=== PATIENT | male | born 1990 | race Caucasian/White ===

== ENCOUNTER 2019-02-09 02:02 | Emergency (ER) | payer MEDICAID ==
[~2019-02-09] VITALS: Ht 177.8 cm; Wt 74.8 kg
[~2019-02-09 02:02] MED LIST: ANAPROX DS550 MG PO; ANUSOL1 EACH PO; ATARAX,VISTARIL50 MG PO; CARBIDOPA/LEVOD1 TA1 PO; EPI EZ PEN1 MG/ML IM; FLAGYL500 MG PO; MOTRIN800 MG PO; ZOFRAN 4 MG ED2 TAB PO; ZOFRAN ODT8 MG PO
[2019-02-09 02:05] VITALS: BP 149/88
[2019-02-09 02:24] LABS: BASO % 0.3 % (0.0-1.0); EOS # 0.2 10*3/uL (0.0-0.4); EOS % 2.9 % (1.0-4.0); HEMOGLOBIN 13.5 g/dl (14.0-18.0); LYMPH # 1.5 10*3/uL (1.3-4.4); LYMPH % 19.9 % (27.0-41.0); MEAN CELL VOLUME 87.6 fl (80.0-94.0); MEAN CORPUSCULAR HGB 30.3 pg (27.0-31.0); MEAN CORPUSCULAR HGB CONC 34.6 g/dl (33.0-37.0); MEAN PLATELET VOLUME 10.2 fl (9.6-12.3); MONO # 0.8 10*3/uL (0.1-1.0); MONO % 11.2 % (3.0-9.0); NEUT # 4.9 10*3/uL (2.3-7.9); NEUT % 65.4 % (47.0-73.0); PLATELET COUNT AUTOMATED 188 10*3/uL (130-400); RED BLOOD COUNT 4.45 10*6/uL (4.50-5.90); WHITE BLOOD COUNT 7.5 10*3/uL (4.8-10.8)
[2019-02-09 02:38] LABS: ALBUMIN 3.5 gm/dl (3.1-4.5); ALKALINE PHOSPHATASE 116 U/L (45-117); BUN 6 mg/dl (7-24); CHLORIDE 104 mmol/L (98-107); CREATININE 0.97 mg/dL (0.70-1.30); ETHYL ALCOHOL < 3.0 mg/dl (<3); POTASSIUM 3.7 mmol/L (3.5-5.1); SGOT/AST 20 IU/L (3-35); SGPT/ALT 19 U/L (12-78); SODIUM 140 mmol/L (136-145); TOTAL PROTEIN 7.3 gm/dL (6.4-8.2)
[2019-02-09 02:39] LABS: ACETAMINOPHEN (TYLENOL) < 5.0 ug/ml (10-30)
[2019-02-09 03:14] LABS: BILIRUBIN NEGATIVE (NEGATIVE); BLOOD NEGATIVE (NEGATIVE); CLARITY CLEAR (CLEAR); COLOR YELLOW (YELLOW); GLUCOSE NEGATIVE (NEGATIVE); KETONE NEGATIVE (NEGATIVE); LEUKO ESTERASE NEGATIVE (NEGATIVE); NITRITE NEGATIVE (NEGATIVE); PH 6.5 (5.0-9.0); UROBILINOGEN 0.2 E.U./dl (0.2-1.0)
[2019-02-09 03:49] LABS: URINE AMPHETAMINES < 1000 (1000ng/ml); URINE BARBITURATES < 200 (200ng/ml); URINE CANNABINOIDS (THC) < 50 (50ng/ml); URINE COCAINE < 300 (300ng/ml); URINE METHADONE < 300 (300ng/ml); URINE OPIATES > 300 (300ng/ml)
[2019-02-09 03:53] LABS: URINE BENZODIAZEPINES < 200 (200ng/ml)
[2019-02-09 03:54] LABS: URINE PHENCYCLIDINE < 25 (25ng/ml)
== END 2019-02-09 04:25 | disposition home or self-care (01) ==
LOC: ED 02:02
PROVIDERS: Emergency Medicine Emergency Medical Services
DX: F19.10 Other psychoactive substance abuse, uncomplicated (principal); R41.82 Altered mental status, unspecified; J45.909 Unspecified asthma, uncomplicated; F11.10 Opioid abuse, uncomplicated; Z88.0 Allergy status to penicillin; Z79.899 Other long term (current) drug therapy

== ENCOUNTER 2019-02-15 23:59 | Inpatient (IN) | payer SELFPAY ==
[~2019-02-15] VITALS: Ht 182.8 cm; Wt 70.1 kg
--- NOTE | ~2019-02-15 | EKG ---
[place], [place] ELECTROCARDIOGRAM REPORT NAME: ERIK VILLALBA UNIT #: [id number] ROOM: 502 DOCTOR: EPIPHANY DRAFT REPORT BIRTHDATE: [birth year] [facility] Test Date: 2019-02-16 Test Time: 00:22:33 Pat Name: ERIK VILLALBA Department: Room: [facility] Gender: M In [employer] Representative: Linda Elaine : 1990 Requested By: JOCELYNE HEATH Order Number: [id number] Reading MD: Oswaldo Rivera Measurements Intervals [place] Rate: 106 P: 64 MD: 148 QRS: 71 QRSD: 114 T: -7 QT: 356 QTc: 473 Interpretive Statements Sinus tachycardia Borderline intraventricular conduction delay Borderline repolarization abnormality Borderline prolonged QT interval Electronically Signed On 02-16-2019 11:12:16 PDT by Oswaldo Rivera CM:EKGRPT:ELECTROCARDIOGRAM REPORT [id number] JOCELYNE HEATH MD EPIPHANY DRAFT REPORT JOCELYNE HEATH MD
[2019-02-16 00:03] VITALS: BP 134/92
[2019-02-16 00:26] LABS: HEMATOCRIT 40.9 % (42.0-52.0); HEMOGLOBIN 13.8 g/dl (14.0-18.0); MEAN CELL VOLUME 87.4 fl (80.0-94.0); MEAN CORPUSCULAR HGB 29.5 pg (27.0-31.0); MEAN CORPUSCULAR HGB CONC 33.7 g/dl (33.0-37.0); MEAN PLATELET VOLUME 10.1 fl (9.6-12.3); PLATELET COUNT AUTOMATED 305 10*3/uL (130-400); RED BLOOD COUNT 4.68 10*6/uL (4.50-5.90); RED CELL DISTRI WIDTH 12.1 % (0-14.5); WHITE BLOOD COUNT 24.3 10*3/uL (4.8-10.8)
[2019-02-16 00:41] LABS: ALBUMIN 3.5 gm/dl (3.1-4.5); ALKALINE PHOSPHATASE 134 U/L (45-117); BUN 8 mg/dl (7-24); CHLORIDE 100 mmol/L (98-107); CREATININE 1.47 mg/dL (0.70-1.30); POTASSIUM 3.9 mmol/L (3.5-5.1); SGOT/AST 74 IU/L (3-35); SGPT/ALT 56 U/L (12-78); SODIUM 136 mmol/L (136-145); TOTAL PROTEIN 7.5 gm/dL (6.4-8.2)
[2019-02-16 00:42] LABS: ACETAMINOPHEN (TYLENOL) < 5.0 ug/ml (10-30); ETHYL ALCOHOL < 3.0 mg/dl (<3)
[2019-02-16 00:50] LABS: PLATELET SUFFICIENCY NORMAL (NORMAL); TOTAL CELLS COUNTED 100 #CELLS
[2019-02-16 00:51] LABS: VACUOLATION OF NEUTROPHILS SLIGHT
[2019-02-16 03:01] LABS: BILIRUBIN NEGATIVE (NEGATIVE); BLOOD TRACE-INTACT (NEGATIVE); CLARITY CLEAR (CLEAR); COLOR YELLOW (YELLOW); GLUCOSE 2+ (NEGATIVE); KETONE NEGATIVE (NEGATIVE); LEUKO ESTERASE NEGATIVE (NEGATIVE); NITRITE NEGATIVE (NEGATIVE); PH 6.5 (5.0-9.0); UROBILINOGEN 0.2 E.U./dl (0.2-1.0)
[2019-02-16 03:08] LABS: BACTERIA 2+; RBC 0-2 rbc/hpf (0-2)
[2019-02-16 03:11] LABS: URINE AMPHETAMINES > 1000 (1000ng/ml); URINE BARBITURATES < 200 (200ng/ml); URINE BENZODIAZEPINES < 200 (200ng/ml); URINE CANNABINOIDS (THC) < 50 (50ng/ml); URINE COCAINE < 300 (300ng/ml); URINE METHADONE < 300 (300ng/ml); URINE OPIATES > 300 (300ng/ml)
[2019-02-16 03:15] LABS: URINE PHENCYCLIDINE < 25 (25ng/ml)
[2019-02-16 06:05] LABS: BUN 8 mg/dl (7-24); CHLORIDE 108 mmol/L (98-107); CREATININE 1.02 mg/dL (0.70-1.30); POTASSIUM 4.4 mmol/L (3.5-5.1); SGOT/AST 35 IU/L (3-35); SGPT/ALT 44 U/L (12-78); SODIUM 141 mmol/L (136-145); TOTAL PROTEIN 6.3 gm/dL (6.4-8.2)
[2019-02-16 06:06] LABS: ALKALINE PHOSPHATASE 113 U/L (45-117)
[2019-02-16 06:41] LABS: BASO % 0.2 % (0.0-1.0); EOS % 0.1 % (1.0-4.0); HEMATOCRIT 35.1 % (42.0-52.0); LYMPH # 1.5 10*3/uL (1.3-4.4); LYMPH % 8.2 % (27.0-41.0); MEAN CELL VOLUME 89.3 fl (80.0-94.0); MEAN CORPUSCULAR HGB 30.5 pg (27.0-31.0); MEAN CORPUSCULAR HGB CONC 34.2 g/dl (33.0-37.0); MEAN PLATELET VOLUME 10.8 fl (9.6-12.3); MONO # 1.3 10*3/uL (0.1-1.0); NEUT # 15.6 10*3/uL (2.3-7.9); NEUT % 83.6 % (47.0-73.0); PLATELET COUNT AUTOMATED 282 10*3/uL (130-400); RED BLOOD COUNT 3.93 10*6/uL (4.50-5.90); RED CELL DISTRI WIDTH 12.1 % (0-14.5); WHITE BLOOD COUNT 18.6 10*3/uL (4.8-10.8)
[2019-02-16 08:00] VITALS: BP 123/70
--- NOTE | 2019-02-16 08:03 | NUR ---
Time: 802 A 28 year old MALE admitted to 5E under services of JAN GUY DO. Pt. arrived via stretcher from ER. Chief complaint: ACCIDENTAL OPIATE OVERDOSE. BINA BROWN
--- NOTE | 2019-02-16 08:08 | NUR ---
PATIENT TAKEN TO 5TH FLOOR AT THIS TIME BY THIS NURSE. REPORT GIVEN TO BINA QUINN AT BEDSIDE.
[2019-02-16 16:00] VITALS: BP 133/64
[2019-02-16 20:00] VITALS: BP 147/69
[2019-02-17] VITALS: BP 109/66
[2019-02-17 06:32] LABS: BASO % 0.2 % (0.0-1.0); EOS # 0.2 10*3/uL (0.0-0.4); EOS % 1.6 % (1.0-4.0); HEMATOCRIT 39.6 % (42.0-52.0); HEMOGLOBIN 13.1 g/dl (14.0-18.0); LYMPH # 3.4 10*3/uL (1.3-4.4); LYMPH % 26.7 % (27.0-41.0); MEAN CELL VOLUME 90.2 fl (80.0-94.0); MEAN CORPUSCULAR HGB 29.8 pg (27.0-31.0); MEAN CORPUSCULAR HGB CONC 33.1 g/dl (33.0-37.0); MEAN PLATELET VOLUME 10.8 fl (9.6-12.3); MONO # 1.3 10*3/uL (0.1-1.0); MONO % 9.9 % (3.0-9.0); NEUT # 7.7 10*3/uL (2.3-7.9); NEUT % 61.2 % (47.0-73.0); PLATELET COUNT AUTOMATED 325 10*3/uL (130-400); RED BLOOD COUNT 4.39 10*6/uL (4.50-5.90); RED CELL DISTRI WIDTH 12.3 % (0-14.5); WHITE BLOOD COUNT 12.6 10*3/uL (4.8-10.8)
[2019-02-17 06:52] LABS: BUN 8 mg/dl (7-24); CHLORIDE 105 mmol/L (98-107); CREATININE 0.95 mg/dL (0.70-1.30); SODIUM 142 mmol/L (136-145)
[2019-02-17 08:00] VITALS: BP 135/80
--- NOTE | 2019-02-17 10:54 | NUR ---
PT LEFT AGAINST MEDICAL ADVICE. PROGRAM MANAGER ENVIRONMENTAL PLANNING, DEA CINTRON NOTIFIED WELL DR NUÑEZ.PT HAD NO IV ACCESS AND NO TELEMETRY.PT ALERT, ORIENTED, AND AMBULATORY.
--- NOTE | 2019-02-17 10:55 | NUR ---
[place] STAFF SPOKE WITH PATIENT ABOUT [place] SERVICES. PATIENT DOES NOT WANT ANY SERVICES AT THIS TIME. RYLAN MCCORMACK B.A. FREIGHT RATE SPECIALIST
== END 2019-02-17 11:14 | disposition left against medical advice (07) | DRG 917 ==
LOC: ED 23:59 → EDHOLD 02-16 03:16 → 5E 02-16 07:14
PROVIDERS: Emergency Medicine Emergency Medical Services; Family Medicine; Student in an Organized Health Care Education/Training Program; ADMIT Emergency Medicine
DX: T40.1X1A Poisoning by heroin, accidental (unintentional), initial encounter (principal); N17.0 Acute kidney failure with tubular necrosis; R65.11 Systemic inflammatory response syndrome (SIRS) of non-infectious origin with acute organ dysfunction; E44.1 Mild protein-calorie malnutrition; D72.829 Elevated white blood cell count, unspecified; F17.210 Nicotine dependence, cigarettes, uncomplicated; F15.10 Other stimulant abuse, uncomplicated; R73.9 Hyperglycemia, unspecified; R74.0 Nonspecific elevation of levels of transaminase and lactic acid dehydrogenase [LDH]; R74.8 Abnormal levels of other serum enzymes; J45.909 Unspecified asthma, uncomplicated; R00.0 Tachycardia, unspecified; F19.10 Other psychoactive substance abuse, uncomplicated; F11.10 Opioid abuse, uncomplicated; Z53.21 Procedure and treatment not carried out due to patient leaving prior to being seen by health care provider; Z71.6 Tobacco abuse counseling; Z88.0 Allergy status to penicillin; Y92.89 Other specified places as the place of occurrence of the external cause; Z68.20 Body mass index [BMI] 20.0-20.9, adult

== ENCOUNTER 2019-03-02 12:11 | Emergency (ER) | payer MEDICAID ==
[~2019-03-02] VITALS: Wt 79.4 kg
[2019-03-02 12:12] VITALS: BP 133/80
[2019-03-02] MEDS ORDERED: IBUPROFEN600 MG PO (14:21)
== END 2019-03-02 14:25 | disposition home or self-care (01) ==
LOC: ED 12:11
DX: S22.32XA Fracture of one rib, left side, initial encounter for closed fracture (principal); F17.200 Nicotine dependence, unspecified, uncomplicated; Z88.0 Allergy status to penicillin; X58.XXXA Exposure to other specified factors, initial encounter; Y93.89 Activity, other specified; Y92.89 Other specified places as the place of occurrence of the external cause; Y99.8 Other external cause status

== ENCOUNTER 2020-07-17 03:31 | Emergency (ER) | payer OTHER ==
[~2020-07-17 03:31] MED LIST changes: +IBUPROFEN600 MG PO
[2020-07-17] MEDS ORDERED: ACETAMINOPHEN500 M4 PO (03:46)
[2020-07-17] MEDS ORDERED: ONDANSETRON HYDR4 M1 PO (03:47)
[2020-07-17] MEDS ORDERED: OXYCODONE HCL5 MG PO (03:47)
[2020-07-17] MEDS ORDERED: IBU800 M1 PO (03:47)
[2020-07-17 04:27] LABS: HEMATOCRIT 38.8 % (42.0-52.0); MEAN CORPUSCULAR HGB 29.7 pg (27.0-31.0); MEAN PLATELET VOLUME 9.9 fl (9.6-12.3); PLATELET COUNT AUTOMATED 185 10*3/uL (130-400); RED BLOOD COUNT 4.31 10*6/uL (4.50-5.90); RED CELL DISTRI WIDTH 12.6 % (0-14.5); WHITE BLOOD COUNT 17.2 10*3/uL (4.8-10.8)
[2020-07-17 04:40] LABS: BUN 14 mg/dl (7-24); CHLORIDE 112 mmol/L (98-107); CREATININE 1.48 mg/dL (0.70-1.30); POTASSIUM 4.6 mmol/L (3.5-5.1); SODIUM 141 mmol/L (136-145)
[2020-07-17 04:49] LABS: BURR CELLS FEW; TOTAL CELLS COUNTED 100 #CELLS
[2020-07-17 04:51] LABS: PLATELET SUFFICIENCY NORMAL (NORMAL)
[2020-07-17 04:53] VITALS: BP 111/64
[2020-07-17 06:22] LABS: URINE BARBITURATES < 200 (200ng/ml); URINE BENZODIAZEPINES < 200 (200ng/ml); URINE CANNABINOIDS (THC) > 50 (50ng/ml); URINE COCAINE < 300 (300ng/ml); URINE METHADONE < 300 (300ng/ml)
[2020-07-17 06:34] LABS: URINE AMPHETAMINES < 1000 (1000ng/ml); URINE OPIATES < 300 (300ng/ml)
[2020-07-17 06:35] LABS: URINE PHENCYCLIDINE < 25 (25ng/ml)
== END 2020-07-17 08:17 | disposition home or self-care (01) ==
LOC: ED 03:31
PROVIDERS: Internal Medicine
DX: T65.91XA Toxic effect of unspecified substance, accidental (unintentional), initial encounter (principal); D72.829 Elevated white blood cell count, unspecified; N18.31 Chronic kidney disease, stage 3a; J45.909 Unspecified asthma, uncomplicated; Z88.0 Allergy status to penicillin; Z79.899 Other long term (current) drug therapy; Y92.89 Other specified places as the place of occurrence of the external cause

== ENCOUNTER 2020-11-24 18:47 | Emergency (ER) | payer OTHER ==
[~2020-11-24] VITALS: Wt 81.6 kg
[~2020-11-24 18:47] MED LIST changes: +ACETAMINOPHEN500 M4 PO; +IBU800 M1 PO; +ONDANSETRON HYDR4 M1 PO; +OXYCODONE HCL5 MG PO
[2020-11-24 18:52] VITALS: BP 133/79
[2020-11-24] MEDS ORDERED: CYCLOBENZAPRINE10 MG PO (21:17)
[2020-11-24] MEDS ORDERED: IBU600 M1 PO (21:17)
== END 2020-11-24 21:23 | disposition home or self-care (01) ==
LOC: ED 18:47
DX: S39.012A Strain of muscle, fascia and tendon of lower back, initial encounter (principal); Z88.0 Allergy status to penicillin; N18.30 Chronic kidney disease, stage 3 unspecified; Z79.899 Other long term (current) drug therapy; X58.XXXA Exposure to other specified factors, initial encounter; Y93.89 Activity, other specified; Y92.89 Other specified places as the place of occurrence of the external cause; Y99.8 Other external cause status

== ENCOUNTER → 2021-06-21 | Outpatient (CLI) | payer OTHER ==
[~2021-06-21] MED LIST changes: +CYCLOBENZAPRINE10 MG PO; +IBU600 M1 PO
== END | disposition home or self-care (01) ==
LOC: COVID19 15:24
PROVIDERS: ATTEND Internal Medicine
DX: Z20.822 Contact with and (suspected) exposure to COVID-19 (principal)

== ENCOUNTER → 2022-10-02 | Outpatient (CLI) | payer OTHER ==
[2022-10-02 12:00] LABS: BASO % 0.3 % (0.0-1.0); EOS % 0.3 % (1.0-4.0); HEMATOCRIT 40.9 % (42.0-52.0); LYMPH # 1.5 10*3/uL (1.3-4.4); LYMPH % 21.2 % (27.0-41.0); MEAN CELL VOLUME 84.9 fl (80.0-94.0); MEAN CORPUSCULAR HGB 29.5 pg (27.0-31.0); MEAN CORPUSCULAR HGB CONC 34.7 g/dl (33.0-37.0); MEAN PLATELET VOLUME 10.3 fl (9.6-12.3); MONO # 0.7 10*3/uL (0.1-1.0); MONO % 9.8 % (3.0-9.0); NEUT # 4.7 10*3/uL (2.3-7.9); NEUT % 68.1 % (47.0-73.0); PLATELET COUNT AUTOMATED 299 10*3/uL (130-400); RED BLOOD COUNT 4.82 10*6/uL (4.50-5.90); RED CELL DISTRI WIDTH 11.8 % (0-14.5)
[2022-10-02 12:25] LABS: ALKALINE PHOSPHATASE 91 U/L (46-116); BUN 9 mg/dl (9-23); CHLORIDE 105 mmol/L (98-107); LIPASE 22 U/L (12-53); POTASSIUM 4.6 mmol/L (3.4-5.1); SGPT/ALT 20 U/L (10-49); TOTAL PROTEIN 7.5 gm/dL (6.0-8.0)
== END | disposition home or self-care (01) ==
LOC: LAB 11:41
PROVIDERS: ATTEND Nurse Practitioner Family
DX: N20.0 Calculus of kidney (principal)

== ENCOUNTER 2024-10-10 15:10 | Emergency (ER) | payer OTHER ==
[~2024-10-10] VITALS: Ht 185.4 cm; Wt 79.4 kg
[2024-10-10 15:19] VITALS: BP 130/92
[2024-10-10] MEDS ORDERED: methylPREDNISolone sod succ 125 MG VIAL IM ONE (15:30)
[2024-10-10] MEDS ORDERED: Albuterol Sulf/Ipratropium 3 ML VIAL NEB ONE (15:30)
[2024-10-10] MEDS ORDERED: Water, Sterile 10 ML VIAL ONE (15:49)
[2024-10-10] MEDS ORDERED: MEDROL DOSEPAK4 MG PO (16:50)
== END 2024-10-10 16:55 | disposition home or self-care (01) ==
LOC: ED 15:10
DX: J06.9 Acute upper respiratory infection, unspecified (principal); B97.89 Other viral agents as the cause of diseases classified elsewhere; J45.909 Unspecified asthma, uncomplicated; F17.200 Nicotine dependence, unspecified, uncomplicated; Z79.899 Other long term (current) drug therapy; Z88.0 Allergy status to penicillin

== ENCOUNTER 2025-05-16 13:37 | Emergency (ER) | payer OTHER ==
[~2025-05-16] VITALS: Ht 182.8 cm; Wt 83.9 kg
[~2025-05-16 13:37] MED LIST changes: +MEDROL DOSEPAK4 MG PO
[2025-05-16 13:40] VITALS: BP 141/81
[2025-05-16] MEDS ORDERED: METHOCARBAMOL 750 MG TAB PO ONE (13:55)
[2025-05-16] MEDS ORDERED: Dexamethasone Sodium Phospha 20 MG/5 ML VIAL IM ONE (13:55)
[2025-05-16] MEDS ORDERED: PREDNISONE20 M1 PO (15:08)
[2025-05-16] MEDS ORDERED: METHOCARBAMOL750 M1 PO (15:08)
[2025-05-16] MEDS ORDERED: NAPROSYN500 MG PO (15:08)
== END 2025-05-16 15:19 | disposition home or self-care (01) ==
LOC: ED 13:37
DX: S29.012A Strain of muscle and tendon of back wall of thorax, initial encounter (principal); M75.91 Shoulder lesion, unspecified, right shoulder; J45.909 Unspecified asthma, uncomplicated; F17.200 Nicotine dependence, unspecified, uncomplicated; Z88.0 Allergy status to penicillin; Z79.899 Other long term (current) drug therapy; X50.9XXA Other and unspecified overexertion or strenuous movements or postures, initial encounter; Y93.89 Activity, other specified; Y92.810 Car as the place of occurrence of the external cause; Y99.8 Other external cause status